=== PATIENT | female | born 1970 | race Caucasian/White ===

== ENCOUNTER 2019-12-26 11:36 | Outpatient (CLI) | payer OTHER, SELFPAY ==
[2019-12-26 12:05] LABS: Basophils Absolute Auto 0.04 K/mm3 (0.00-0.10); Basophils Percent Auto 0.8 % (0.0-1.0); Eosinophils Absolute Auto 0.15 K/mm3 (0.02-0.50); Eosinophils Percent Auto 2.9 % (1.0-6.0); Hematocrit 41.3 % (35.0-49.0); Hemoglobin 13.7 g/dL (12.0-15.0); Immature Granulocyte Absolute 0.01 K/mm3 (0.00-0.00); Immature Granulocyte Percent A 0.2 % (0.0-0.0); Lymphocytes Absolute Auto 2.11 K/mm3 (1.10-4.50); Lymphocytes Percent Auto 40.2 % (18.0-42.0); Mean Corpuscular HGB Conc 33.2 g/dL (32.0-36.0); Mean Corpuscular Hemoglobin 30.4 pg (27.0-31.0); Mean Corpuscular Volume 91.6 fL (78.0-102.0); Mean Platelet Volume 10.3 fl (9.2-11.8); Monocytes Absolute Auto 0.35 K/mm3 (0.10-0.90); Monocytes Percent Auto 6.7 % (2.0-11.0); Neutrophils Absolute Auto 2.6 K/mm3 (1.7-7.2); Neutrophils Percent Auto 49.2 % (50.0-70.0); Platelet Count Result 256 K/mm3 (150-420); Red Blood Count 4.51 M/mm3 (4.20-5.40); Red Cell Distribution Width 14.3 % (11.6-14.4); White Blood Count 5.3 K/mm3 (4.8-10.8)
[2019-12-26 13:29] LABS: Alanine Aminotransferase 24 U/L (14-59); Albumin Level 3.6 g/dL (3.4-5.0); Alkaline Phosphatase 76 U/L (46-116); Anion Gap 10.5 mmol/L (7-16); Aspartate Amino Transferase 19 U/L (15-37); Bilirubin,Total 0.3 mg/dL (0.00-1.00); Blood Urea Nitrogen 20 mg/dL (7-18); Calcium 8.9 mg/dL (8.5-10.1); Carbon Dioxide 30 mmol/L (21-32); Chloride 105 mmol/L (98-108); Cholesterol 127 mg/dL (0-200); Estimated Glomerular Filt Rate > 60; Ferritin 106 ng/mL (8-252); Glucose 92 mg/dL (70-99); HDL Direct 49 mg/dL (40-60); Iron 83 ug/dL (50-170); LDL Cholesterol Calculated 67 mg/dL (<130); Magnesium 2.1 mg/dL (1.8-2.4); Osmolality Calculated 294 mOsm/kg (285-295); Percent Iron Saturation 30 % (12-57); Phosphorus 4.2 mg/dL (2.6-4.7); Potassium 4.5 mmol/L (3.5-5.1); Sodium 141 mmol/L (136-145); Total Protein 6.5 g/dL (6.4-8.2); Triglycerides 53 mg/dL (0-150); Vitamin B12 699 pg/mL (193-986)
[2019-12-26 13:39] LABS: Folic Acid > 20.0 ng/mL (8.6->20)
[2019-12-28 14:19] LABS: Parathyroid Intact 26 pg/mL (14-64)
[2019-12-28 19:58] LABS: Vitamin D 25 Hydroxy 54 ng/mL (30-100)
[2019-12-30 14:26] LABS: Vitamin B1 23 nmol/L (8-30)
== END 2019-12-26 11:37 | disposition home or self-care (01) ==
LOC: CHSLAB 11:42
PROVIDERS: PCP Physician Assistant
DX: E66.01 Morbid (severe) obesity due to excess calories (principal); K90.9 Intestinal malabsorption, unspecified; Z98.84 Bariatric surgery status
CPT/HCPCS: 36415; 80053; 80061; 82306; 82607; 82728; 82746; 83540; 83550; 83735; 83970; 84100; 84425; 85025

== ENCOUNTER 2020-04-16 10:41 | Outpatient (CLI) | payer OTHER, SELFPAY ==
[2020-04-16 11:04] LABS: Hemoglobin A1C 5.1 % (<5.7)
[2020-04-16 11:36] LABS: Basophils Absolute Auto 0.03 K/mm3 (0.00-0.10); Basophils Percent Auto 0.5 % (0.0-1.0); Eosinophils Absolute Auto 0.16 K/mm3 (0.02-0.50); Eosinophils Percent Auto 2.8 % (1.0-6.0); Hematocrit 40.8 % (35.0-49.0); Hemoglobin 13.2 g/dL (12.0-15.0); Immature Granulocyte Absolute 0.03 K/mm3 (0.00-0.00); Immature Granulocyte Percent A 0.5 % (0.0-0.0); Lymphocytes Absolute Auto 2.39 K/mm3 (1.10-4.50); Lymphocytes Percent Auto 41.2 % (18.0-42.0); Mean Corpuscular HGB Conc 32.4 g/dL (32.0-36.0); Mean Corpuscular Hemoglobin 29.5 pg (27.0-31.0); Mean Corpuscular Volume 91.1 fL (78.0-102.0); Mean Platelet Volume 10.4 fl (9.2-11.8); Monocytes Absolute Auto 0.49 K/mm3 (0.10-0.90); Monocytes Percent Auto 8.4 % (2.0-11.0); Neutrophils Absolute Auto 2.7 K/mm3 (1.7-7.2); Neutrophils Percent Auto 46.6 % (50.0-70.0); Platelet Count Result 235 K/mm3 (150-420); Red Blood Count 4.48 M/mm3 (4.20-5.40); Red Cell Distribution Width 14.2 % (11.6-14.4); White Blood Count 5.8 K/mm3 (4.8-10.8)
[2020-04-16 12:27] LABS: Alanine Aminotransferase 24 U/L (14-59); Albumin Level 3.6 g/dL (3.4-5.0); Alkaline Phosphatase 80 U/L (46-116); Anion Gap 8 mmol/L (8-16); Aspartate Amino Transferase 11 U/L (15-37); Bilirubin,Total 0.5 mg/dL (0.00-1.00); Blood Urea Nitrogen 22 mg/dL (7-18); Calcium 9.4 mg/dL (8.5-10.1); Carbon Dioxide 29 mmol/L (21-32); Chloride 106 mmol/L (98-108); Cholesterol 136 mg/dL (0-200); Estimated Glomerular Filt Rate > 60; Ferritin 89 ng/mL (8-252); Glucose 87 mg/dL (70-99); HDL Direct 51 mg/dL (40-60); Iron 97 ug/dL (50-170); LDL Cholesterol Calculated 73 mg/dL (<130); Magnesium 2.1 mg/dL (1.8-2.4); Osmolality Calculated 298 mOsm/kg (285-295); Percent Iron Saturation 34 % (12-57); Phosphorus 4.6 mg/dL (2.6-4.7); Potassium 4.4 mmol/L (3.5-5.1); Sodium 143 mmol/L (136-145); Total Protein 6.5 g/dL (6.4-8.2); Triglycerides 59 mg/dL (0-150); Vitamin B12 913 pg/mL (193-986)
[2020-04-16 12:29] LABS: Folic Acid > 20.0 ng/mL (8.6->20)
[2020-04-19 14:40] LABS: Parathyroid Intact 16 pg/mL (14-64)
[2020-04-19 21:57] LABS: Vitamin D 25 Hydroxy 52 ng/mL (30-100)
[2020-04-21 04:20] LABS: Vitamin B1 17 nmol/L (8-30)
== END 2020-04-16 10:42 | disposition home or self-care (01) ==
PROVIDERS: PCP Physician Assistant
DX: E66.01 Morbid (severe) obesity due to excess calories (principal); K90.9 Intestinal malabsorption, unspecified; Z98.84 Bariatric surgery status
CPT/HCPCS: 36415; 80053; 80061; 82306; 82607; 82728; 82746; 83036; 83540; 83550; 83735; 83970; 84100; 84425; 85025

== ENCOUNTER 2021-04-24 10:03 | Outpatient (CLI) | payer OTHER, SELFPAY ==
[2021-04-24 10:18] LABS: Basophils Absolute Auto 0.04 K/mm3 (0.00-0.10); Basophils Percent Auto 0.6 % (0.0-1.0); Eosinophils Absolute Auto 0.14 K/mm3 (0.02-0.50); Eosinophils Percent Auto 2.2 % (1.0-6.0); Hematocrit 42.2 % (35.0-49.0); Hemoglobin 14.1 g/dL (12.0-15.0); Immature Granulocyte Absolute 0.01 K/mm3 (0.00-0.00); Immature Granulocyte Percent A 0.2 % (0.0-0.0); Lymphocytes Absolute Auto 2.48 K/mm3 (1.10-4.50); Lymphocytes Percent Auto 39.3 % (18.0-42.0); Mean Corpuscular HGB Conc 33.4 g/dL (32.0-36.0); Mean Corpuscular Hemoglobin 30.1 pg (27.0-31.0); Mean Platelet Volume 8.9 fl (9.2-11.8); Monocytes Absolute Auto 0.49 K/mm3 (0.10-0.90); Monocytes Percent Auto 7.8 % (2.0-11.0); Neutrophils Absolute Auto 3.2 K/mm3 (1.7-7.2); Neutrophils Percent Auto 49.9 % (50.0-70.0); Platelet Count Result 341 K/mm3 (150-420); Red Blood Count 4.69 M/mm3 (4.20-5.40); Red Cell Distribution Width 13.5 % (11.6-14.4); White Blood Count 6.3 K/mm3 (4.8-10.8)
[2021-04-24 11:38] LABS: Alanine Aminotransferase 40 U/L (14-59); Albumin Level 3.8 g/dL (3.4-5.0); Alkaline Phosphatase 74 U/L (46-116); Anion Gap 9 mmol/L (8-16); Aspartate Amino Transferase 19 U/L (15-37); Bilirubin,Total 0.5 mg/dL (0.00-1.00); Blood Urea Nitrogen 18 mg/dL (7-18); Calcium 9.2 mg/dL (8.5-10.1); Carbon Dioxide 30 mmol/L (21-32); Chloride 104 mmol/L (98-108); Cholesterol 136 mg/dL (0-200); Estimated Glomerular Filt Rate > 60; Ferritin 107 ng/mL (8-252); Glucose 91 mg/dL (70-99); HDL Direct 53 mg/dL (40-60); Iron 111 ug/dL (50-170); LDL Cholesterol Calculated 71 mg/dL (<130); Magnesium 1.9 mg/dL (1.8-2.4); Osmolality Calculated 297 mOsm/kg (285-295); Percent Iron Saturation 36 % (12-57); Phosphorus 4.2 mg/dL (2.6-4.7); Potassium 4.4 mmol/L (3.5-5.1); Sodium 143 mmol/L (136-145); Total Protein 6.7 g/dL (6.4-8.2); Triglycerides 58 mg/dL (0-150); Vitamin B12 1295 pg/mL (193-986)
[2021-04-24 11:42] LABS: Folic Acid > 20.0 ng/mL (8.6->20)
[2021-04-27 12:16] LABS: Parathyroid Intact 22 pg/mL (14-64)
[2021-04-27 22:46] LABS: Vitamin D 25 Hydroxy 51 ng/mL (30-100)
== END 2021-04-24 10:04 | disposition home or self-care (01) ==
LOC: CHSLAB 10:05
PROVIDERS: PCP Physician Assistant; Visit Provider Surgery
DX: E66.01 Morbid (severe) obesity due to excess calories (principal); K90.9 Intestinal malabsorption, unspecified; Z98.84 Bariatric surgery status
CPT/HCPCS: 36415; 80053; 80061; 82306; 82607; 82728; 82746; 83540; 83550; 83735; 83970; 84100; 84425; 85025

== ENCOUNTER 2021-04-30 12:48 | Outpatient (CLI) | payer OTHER, SELFPAY ==
--- NOTE | ~2021-04-30 | MM_ITS ---
EXAMINATION: MM screening kendall BI w darwin HISTORY: Screening mammogram TECHNIQUE: Craniocaudal and mediolateral oblique 3-D tomosynthesis images were obtained and synthetic 2-D images were generated. CAD analysis was submitted and interpreted. COMPARISON: 11/29/2018 bilateral digital screening mammogram BREAST PARENCHYMAL COMPOSITION: The breasts are almost entirely fatty. FINDINGS: There is no evidence of suspicious mass, calcification, or architectural distortion to sugg est malignancy in either breast. There has been no suspicious interval change. IMPRESSION: 1. No mammographic evidence of malignancy. 2. Recommend routine screening mammography in one year. BI-RADS Category 1: Negative Reviewed, dictated and finalized at location A.
== END 2021-04-30 12:49 | disposition home or self-care (01) ==
PROVIDERS: PCP Physician Assistant; Visit Provider Nurse Practitioner Family
DX: Z12.31 Encounter for screening mammogram for malignant neoplasm of breast (principal)
CPT/HCPCS: 77063; 77067

== ENCOUNTER 2022-11-15 17:45 | Emergency (ER) | payer OTHER, SELFPAY ==
[2022-11-15 17:50] VITALS: BP 148/99; PULSE 87; RESP 20; TEMP 36.9; O2SAT 100
--- NOTE | 2022-11-15 18:02 | ED.FEMALEGU ---
HPI - Female Genitourinary General Chief complaint: Urogenital-Female Stated complaint: poss uti History of Present Illness HPI Narrative: PATIENT PRESENTS WITH BURNING WITH URINATION AND LOW BACK PAIN NO PELVIC PAIN NO VAGINAL DISCHARGE NO FLANK PAIN AND NO GROSS HEMATURIA Related Data Allergies Allergy/AdvReac Type Severity Reaction Status Date / Time NSAIDS (Non-Steroidal AdvReac Other Verified 05/27/19 11:20 Anti-Inflamma Review of Systems Review of Systems: CONSTITUTIONAL: DENIES FEVER, CHILLS, OR SWEATS. EYES: DENIES VISUAL CHANGES, REDNESS, OR DISCHARGE. ENT: DENIES RHINORRHEA, CONGESTION, SORE THROAT, OR OTALGIA. CARDIOVASCULAR: DENIES CHEST PAIN, PALPITATIONS, OR EDEMA. RESPIRATORY: DENIES COUGH OR DYSPNEA. GASTROINTESTINAL: DENIES ABDOMINAL PAIN, NAUSEA, VOMITING, OR DIARRHEA. GENITOURINARY: DENIES DYSURIA OR HEMATURIA. SKIN: DENIES RASH OR ITCHING. MUSCULOSKELETAL: DENIES BACK PAIN, JOINT PAIN, OR MYALGIA. NEUROLOGIC: DENIES HEADACHE, NUMBNESS, OR WEAKNESS. PSYCHIATRIC: DENIES ANXIETY OR DEPRESSION. [facility]LY [facility] Past Medical History Medical History (Updated 11/15/22 @ 18:03 by SELWYN Milligan) Anxiety Depression Hypertension Obesity Obstructive sleep apnea Surgical History Surgical History (System 05/27/19 @ 11:20 by Shelley Roe) H/O bariatric surgery H/O tubal ligation S/P cholecystectomy Family History Family History (System 05/27/19 @ 11:20 by Shelley Roe) Mother Chronic obstructive pulmonary disease Hypertension Father Diabetes mellitus Hypertension Sibling Hypertension Sibling Hypertension Social History Social History (System 05/27/19 @ 11:20 by Shelley Roe) Smoking status: Never smoker Alcohol intake: former Substance use: never Living arrangements: with family Additional living arrangements comments: With her and he is the durable power real estate attorney. Three biological children. two step children. Occupation/Education: unemployed Gender identity (if verbalized by the patient): Female Spiritual care concerns: No Agree to blood products: Yes Comments AT TIME OF SIGNATURE, AGREE WITH NURSING PAST MEDICAL, SURGICAL, SOCIAL AND FAMILY HISTORY. THERE IS NO RELEVANT FAMILY HISTORY PERTINENT TO THE PRESENTING COMPLAINT Exam Narrative: GENERAL: WELL-APPEARING, WELL-NOURISHED, AND IN NO ACUTE DISTRESS. HEAD: NORMOCEPHALIC, ATRAUMATIC. EYES: PERRLA AND EOMI. ENT: NARES CLEAR, NO RHINORRHEA OR EPISTAXIS. MUCOUS MEMBRANES MOIST. NECK: SUPPLE. CHEST: CLEAR TO AUSCULTATION. NO RESPIRATORY DISTRESS. HEART: REGULAR RATE AND RHYTHM. NO MURMUR HEARD. NORMAL PERIPHERAL PULSES. ABDOMEN: SOFT, NONTENDER, NONDISTENDED, NORMAL ACTIVE BOWEL SOUNDS. EXTREMITIES: NORMAL RANGE OF MOTION. NO EDEMA. SKIN: WARM, DRY, NO RASH. NEURO: NO FOCAL DEFICITS. ALERT AND ORIENTED X3. GIULIANA COMA SCALE EYE OPENING: SPONTANEOUS 4 GIULIANA COMA SCALE MOTOR: OBEYS COMMANDS 6 GIULIANA COMA SCALE VERBAL: ORIENTED 5 GIULIANA COMA SCALE TOTAL 15 Course Course Level of Care: Express Care Visit Vital Signs Vital signs: Vital Signs Temperature 36.9 C 11/15/22 17:50 Pulse Rate 87 11/15/22 17:50 Respiratory Rate 20 11/15/22 17:50 Blood Pressure 148/99 H 11/15/22 17:50 Pulse Oximetry 100 11/15/22 17:50 Oxygen Delivery Room Air 11/15/22 17:50 Temperature 36.9 C 11/15/22 17:50 Pulse Rate 87 11/15/22 17:50 Respiratory Rate 20 11/15/22 17:50 Blood Pressure 148/99 H 11/15/22 17:50 Pulse Oximetry 100 11/15/22 17:50 Oxygen Delivery Room Air 11/15/22 17:50 PLEASE LIDA SCHEDULE A FOLLOWUP VISIT WITH YOUR PERSONAL PHYSICIAN FOR FURTHER EVALUATION AND TREATMENT. INCLUDING RECHECK AND DISCUSSION OF YOUR BLOOD PRESSURE. IF YOUR SYMPTOMS PERSIST, CHANGE OR WORSEN SIGNIFICANTLY BEFORE YOU CAN CONTACT YOUR PERSONAL PHYSICIAN THEN PLEASE, WITHOUT DELAY, GO TO THE EMERGENCY DEPARTMENT FOR FURTHER EVALUATION LANDRY Pack
== END 2022-11-15 18:10 | disposition home or self-care (01) ==
PROVIDERS: Emergency Provider Nurse Practitioner Family
DX: N39.0 Urinary tract infection, site not specified (principal); I10 Essential (primary) hypertension
CPT/HCPCS: 81003; 87077; 87086; 87186; 99213; G0463

== ENCOUNTER 2024-08-13 11:41 | Outpatient (CLI) | payer OTHER, SELFPAY ==
--- OUTSIDE RECORDS SUMMARY | 2024-08-13 11:48 | XMS_ITS | Clinical Summary ---
Author Organization [facility] Address [address] [place] [address]. [place] [address] [place] [address] Care Team Providers Care Embossing Machine Operator Helper Name Role Phone Mandeep Hickey MD Primary Care Provider [phone] Encounters Date Type Department Care Team Description 06/20/2024 1:54 PM CHUCKING AND BORING MACHINE OPERATOR - 06/20/2024 11:59 PM CHUCKING AND BORING MACHINE OPERATOR Hospital Encounter [facility] [address] [place] [address] Jadiel Bonilla APNP Discharge Disposition: Home or Self Care (Routine Discharge) 06/20/2024 Travel from Last 3 Months Social History Tobacco Use Types Packs/Day Years Used Date Smoking Tobacco: Never Assessed Comments Unknown Sex and Gender Information Value Date Recorded Sex Assigned at Not on file Legal Sex Female 7:08 PM CDT Gender Identity Not on file Sexual Orientation Not on file Plan of Treatment Health Maintenance Due Date Last Done Comments Cervical Cancer Screening Pap Smear (Age 30 to 64) Every 3 Years 1969 Colorectal Cancer Screening Colonoscopy (10 Years) 1969 Annual Physical 1972 Hepatitis C 09/21/1987 Hepatitis B Vaccines (1 of 3 - 19+ 3-dose series) 1988 Cervical Cancer Screening Pap with HPV Testing (Age 30 to 64) Every 5 Years 09/21/1999 Cervical Cancer Screening with HPV 09/21/1999 Zoster Vaccines (1 of 2) 09/21/2019 DTaP, Tdap and Td Vaccines (7 - Td or Tdap) 02/16/2022 02/17/2012, 12/17/1974, 09/14/1971, Additional history exists COVID-19 Vaccine ( season) 2024 10/18/2020 Influenza Adult (#1) 2024 04/30/2022, 05/30/2019, 05/19/2018, Additional history exists Mammogram Screening 06/20/2026 06/20/2024 Meningococcal B Vaccine Aged Out No l onger eligible based on patient's age to complete this topic Meningococcal Vaccine Aged Out No yareli wendy eligible based on patient's age to complete this topic Pneumococcal Vaccine: Pediatrics (0 to 5 Years) and At-Risk Patients (6 to 64 Years) Aged Out No longer eligible based on patient's age to complete this topic RSV Immunizations Under 20 Months Aged Out No longer eligible based on patient's age to complete this topic Procedures Procedure Name Priority Date/Time Associated Diagnosis Comments MG SCREENING W HOANG JASPER DIGI Routine 06/20/2024 3:02 PM CHUCKING AND BORING MACHINE OPERATOR Encounter for screening for depression from Last 3 Months Results * MG SCREENING W HOANG JASPER DIGI (06/20/2024 3:02 PM CHUCKING AND BORING MACHINE OPERATOR) Anatomical Region Laterality Modality Breast Bilateral Mammography 06/23/2024 11:4 9 AM CHUCKING AND BORING MACHINE OPERATOR Impressions 06/23/2024 11:49 AM CHUCKING AND BORING MACHINE OPERATOR IMPRESSION: No suspicious change since 04/30/2021. Recommendation: 1: Routine Screening ??Bilateral ??in 1 Year Assessment: ACR BI-RADS 2 - BENIGN FINDING(S) Ordered By: JADIEL BONILLA Interpreted By: Rogers Coburn MD, 06/23/2024 11:49 AM Narrative 06/23/2024 11:49 AM CHUCKING AND BORING MACHINE OPERATOR [address] [place] [address] Examination: Digital screening mammogram with CAD. Clinical history: Asymptomatic patient presents for routine screening. Comparison: 04/30/2021. Technique: Bilateral digital mammograms. The exam was interpreted with the use of a computer-aided detection (CAD) system. ??Additional 3-D tomosynthesis images were acquired. Tissue density: There are scattered areas of fibroglandular density. Findings: The breast tissue contains scattered fibroglandular densities. ?? Benign-appearing calcification noted. No suspicious mass, microcalcification or area of architectural distortion can be identified. From a mammographic standpoint, routine followup in one year would seem adequate. Jadiel ALBERTO MAMMO Final Resul t from Last 3 Months Insurance [employer] Care Teams Embossing Machine Operator Helper Relationship Specialty Start Date End Date Mandeep Hickey MD [address] [address] [place] [phone] PCP - General FAMILY PRACTICE 06/20/24
--- OUTSIDE RECORDS SUMMARY | 2024-08-13 11:49 | XMS_ITS | Referral Summary ---
Author Organization [facility] Address [address] [place] [address] Care Team Providers Care Dumper Bailer Operator Name Role Phone Chichi Rose PA-C Primary Care Provider Source Comments [facility],non-owned Affiliates and Associated Physician Practices is amultiple site organization consisting of ambulatory clinics and hospital sitesin [place], [place], [place] and [place]. This disclosure is being madepursuant to the Care Everywhere program and may not contain all information available regarding this patient. Last updated 18.[facility] Allergies No known active allergies Medications * Be aware that medications may not be up to date on this document. Alwaysverify current medications with the patient. Medication Sig Dispensed Refills Start Date End Date Status Multiple Vitamin (MULTIVITAMIN PO) Take 2 tablets by mouth once daily Active Calcium Carbonate-Vitamin D (CALCIUM-D PO) Take by mouth once daily Active Magnesium 500 MG Take 1,000 mg by mouth once daily Active Active Problems Problem Noted Date Diagnosed Date Obstruction of common bile duct 05/18/2019 Morbid obesity 04/26/2019 Resolved Problems Problem Noted Date Diagnosed Date Resolved Date Pre-op evaluation 10/26/2019 Immunizations Name Administration Dates Next Due COVID SAMANTHA PRIMARY 18+YR 10/18/2020 Social History Tobacco Use Types Packs/Day Years Used Date Smoking Tobacco: Never Smokeless Tobacco: Never Alcohol Use Standard Drinks/Week Comments Not Currently 0 (1 standard drink = 0.6 oz pur e alcohol) rare Sex and Gender Information Value Date Recorded Sex Assigned at Not on file Gender Identity Not on file Sexual Orientation Not on file Last Filed Vital Signs Vital Sign Reading Time Taken Comments Blood Pressure 126/87 03/11/2023 11:40 AM CDT Pulse 60 03/11/2023 11:40 AM CDT Temperature 36.4 ??C (97.5 ??F) 03/11/2023 11:30 AM C DT Respiratory Rate 22 03/11/2023 11:20 AM CDT Oxygen Saturation 100% 03/11/2023 11:40 AM CDT Inhaled Oxygen Concentration - - Weight 132.9 kg (293 lb) 03/18/2023 8:00 AM CDT Height 157.5 cm (5' 2 ) 03/18/2023 8:00 AM CDT Body Mass Index 53.59 03/18/2023 8:00 AM CDT Functional Status Functional Status Response Date of Assess ment Is person deaf or have serious hearing difficult y? No 03/11/2023 Is person blind or have serious difficulty seein g? No 03/11/2023 Does person have serious dif ficulty walking/climbing stairs? No 03/11/2023 Does person have difficulty dressing/bathing? No 03/11/2023 Does person have difficulty doing errands alone? No 03/11/2023 Cognitive Status Response Date of Assessm ent Does person have difficulty concentrating/remembering/making decisions? No 03/11/2023 Plan of Treatment Not on file Medical Devices Implanted Type Area Hand Roller Device Identifier Shelf Expiration Date Model / Serial / Lot Evicel Fibrin Sealant Implanted:Qty: 1 on 04/26/2019 by Erwin Echeverria MD at [facility] N/A: Abdomen 09/09/2020 [id number] / / [id number] Procedures Procedure Name Priority Date/Time Associated Diagnosis Comments COMPREHENSIVE METABOLIC PANEL Routine 06/12/2022 3:21 PM FLAMER AFTER LASTING S/P laparoscopic sleeve gastrectomy Intestinal malabsorption following gastrectomy (HCC) LIPID PROFILE Routine 06/12/2022 3:21 PM FLAMER AFTER LASTING S/P laparoscopic sleeve gastrectomy Intestinal malabsorption following gastrectomy (HCC) from Last 3 Months or Most Recently Relevant to Health Maintenance Results * COMPREHENSIVE METABOLIC PANEL (06/12/2022 3:21 PM FLAMER AFTER LASTING) Glucose 107 70 - 125 mg/dL 06/12/2022 3:49 PM FLAMER AFTER LASTING [facility] Sodium 142 136 - 145 mmol/L 06/12/2022 3:49 PM [facility] Potassium 4.4 3.4 - 5.1 mmol/L 06/12/2022 3:49 PM [facility] Chloride 104 98 - 107 mmol/L 06/12/2022 3:49 PM [facility] CO2 28 22 - 29 mmol/L 06/12/2022 3:49 PM [facility] Calcium 9.6 8.4 - 10.2 mg/dL 06/12/2022 3:49 PM [facility] Anion Gap 14 10 - 20 mmol/L 06/12/2022 3:49 PM [facility] BUN 17.3 9.8 - 20.1 mg/dL 06/12/2022 3:49 PM [facility] Creatinine 0.88 0.57 - 1.11 mg/dL 06/12/2022 3:49 PM [facility] eGFR by MDRD >60 >60 mL/min/1.7 3m2 06/12/2022 3:49 PM [facility] eGFR by MDRD >60 >60 mL/min/1.7 3m2 06/12/2022 3:49 PM [facility] Alkaline Phosphatase 87 40 - 150 U/L 06/12/2022 3:49 PM [facility] ALT 18 5 - 55 U/L 06/12/2022 3:49 PM [facility] AST 19 5 - 34 U/L 06/12/2022 3:49 PM [facility] Protein Total 7.3 6.4 - 8.3 gm/dL 06/12/2022 3:49 PM [facility] Albumin 4.0 3.5 - 5.0 gm/dL 06/12/2022 3:49 PM [facility] Globulin Total 3.3 2.6 - 4.0 gm/dL 06/12/2022 3:49 PM [facility] Albumin/Globulin Ratio 1.2 0.9 - 1.6 06/12/2022 3:49 PM [facility] Bilirubin Total 0.6 0.2 - 1.2 mg/dL 06/12/2022 3:49 PM [facility] Blood BLOOD SPECIMEN / Unknown Lab Venipuncture / Unknown 06/12/2022 3:21 PM FLAMER AFTER LASTING 06/12/2022 3:27 PM FLAMER AFTER LASTING Ramila Coe Rajeev VICE ADMIRAL-LINING STITCHER LAB - CHEMISTRY ORDERABLES Performing Organization Address City/State/[facility] Co de Phone Number [facility] [address] * LIPID PROFILE (06/12/2022 3:21 PM FLAMER AFTER LASTING) Cholesterol 159 <200 mg/dL 06/12/2022 3:50 PM FLAMER AFTER LASTING [facility] Triglycerides 74 <150 mg/dL 06/12/2022 3:50 PM FLAMER AFTER LASTING [facility] HDL Cholesterol 56 >40 mg/dL 2 3:50 PM FLAMER AFTER LASTING [facility] Chol HDL Ratio 2.8 1.0 - 6.0 06/12/2022 3:50 PM [facility] LDL Calculated 88 65 - 130 mg/dL 06/12/2022 3:50 PM [facility] VLDL Calculated 15 <=30 mg/dL 2 3:50 PM [facility] Blood BLOOD SPECIMEN / Unknown Lab Venipuncture / Unknown 06/12/2022 3:21 PM FLAMER AFTER LASTING 06/12/2022 3:27 PM FLAMER AFTER LASTING Narrative [facility] - 06/12/2022 3:50 PM FLAMER AFTER LASTING Lipid Profile Comment: CHOLESTEROL LEVEL..................CLINICAL INTERPRETATION LESS THAN 200 MG/DL..............................DESIRABLE 200-239 MG/DL..............................BORDERLINE HIGH GREATER THAN 240 MG/DL................................HIGH LDL-CHOLESTEROL LEVEL..............CLINICAL INTERPRETATION LESS THAN 100 MG/DL................................OPTIMAL 100-129 MG/DL.................................NEAR OPTIMAL GREATER THAN 160 MG/DL...........................HIGH RISK HDL RISK LEVEL GREATER THEN 60 MG/DL............................DECREASED 40-60 MG/DL........................................AVERAGE LESS THAN 40 MG/DL...............................INCREASED TRIGLYCERIDE LEVEL..................CLINICAL INTERPRETATION LESS THAN 150 MG/DL...............................DESIRABLE 150-199 MG/DL...............................BORDERLINE HIGH 200-499 MG/DL..........................................HIGH GREATER THAN 500..................................VERY HIGH THE NATIONAL CHOLESTEROL EDUCATION PROGRAM HAS SET THE ABOVE GUIDELINES (REFERANCE VALUES) FOR CHOLESTEROL AND HDL. RISK ASSOCIATED WITH CHOLESTEROL/HDL RATIOS RISK....................MALE RATIO.............FEMALE RATIO 1/2 AVERAGE.................<3.4.......................<3.3 LOW RISK.................... 4.0 ...................... 3.8 AVERAGE..................... 5.0 ...................... 4.5 2X AVERAGE.................. 9.5 ...................... 7.0 3X AVERAGE...................>23........................>11 Ramila Boo VICE ADMIRAL-LINING STITCHER LAB - CHEMISTRY ORDERABLES Performing Organization Address City/State/[facility] Co de Phone Number [facility] [address] from Last 3 Months or Most Recently Relevant to Health Maintenance Care Teams Dumper Bailer Operator Relationship Specialty Start Date End Date Chichi Rose PA-C [address] [phone] PCP - General Physician Sap Bw Architect 10/15/18
--- OUTSIDE RECORDS SUMMARY | 2024-08-13 11:49 | XMS_ITS | Clinical Summary ---
Author Organization [email or web address] Address [address] [place] [address] Care Team Providers Care Comic Artist Name Role Phone Chichi Rose PA-C Primary Care Provider Source Comments [email or web address],non-owned Affiliates and Associated Physician Practices is amultiple site organization consisting of ambulatory clinics and hospital sitesin [place], [place], [place] and [place]. This disclosure is being madepursuant to the Care Everywhere program and may not contain all information available regarding this patient. Last updated 18.[email or web address] Allergies No known active allergies Medications * Be aware that medications may not be up to date on this document. Always verify current medications with the patient. Medication Sig [...] Next Due COVID SAMANTHA PRIMARY 18+YR 10/18/2020 Family History Medical History Relation Name Comments Hypertension Brother Hypertension Father Other Father electrolyte imb alance COPD - Chronic Obstructive Pulmonary Disease Mother Hypertension Mother Cardiomyopathy Sister Depression Sister Relation Name Status Comments Brother Alive Father Alive Maternal Grandfather Maternal Grandmother Mother Alive Paternal Grandfather Paternal Grandmother Sister Alive Social History Tobacco Use Types Packs/Day Years [...] Mass Index 53.59 03/18/2023 8:00 AM CDT Plan of Treatment Health Maintenance Due Date Last Done Comments COLOGUARD (AGES 45-75) - COLON CA SCREENING 1969 CT COLONOGRAPHY - COLON CA SCREENING 1969 FIT - COLON CA SCREENING 1969 FLEX SIG - COLON CA SCREENING 1969 MAMMOGRAM 1969 PAP SMEAR 1969 HIV SCREENING 1984 HEPATITIS C SCREENING 09/16/1987 DTAP/TDAP/TD VACCINES (1 - Tdap) 1988 HEPATITIS B VACCINE (1 of 3 - 19+ 3-dose series) 1988 PNEUMOCOCCAL VACCINE 50+ (1 of 1 - PCV) 09/21/2019 ZOSTER VACCINE (1 of 2) 09/21/2019 COVID-19 VACCINE (2 - season) 2024 10/18/2020 INFLUENZA VACCINE (#1) 2024 DEPRESSION SCREENING 07/13/2024 SCREENING FOR DIABETES 06/12/2025 , 05/27/2019, 04/27/2019, Additional history exists COLONOSCOPY - COLON CA SCREENING 03/11/2026 03/11/2023, 06/12/2021 Colorectal Cancer Screening 03/11/2026 LIPID TESTING 06/12/2027 06/12/2022 COLON MONITORING 03/11/2033 03/11/2023, 06/12/2021 HIB VACCINE Aged Out No longer eligi ble based on patient's age to complete this topic HPV VACCINE Aged Out No longer eligi ble based on patient's age to complete this topic MENINGOCOCCAL (Group B) VACCINE Aged Out No longer eligible based on patient's age to complete this topic MENINGOCOCCAL VACCINE Aged Out No yareli wendy eligible based on patient's age to complete this topic Medical Devices Implanted Type Area Computer Systems Software Engineer Device Identifier Shelf Expiration Date Model / Serial / Lot Evicel Fibrin Sealant Implanted:Qty: 1 on 04/26/2019 by Erwin Echeverria MD at [facility] N/A: Abdomen 09/09/2020 [id number] / / [id number] Procedures Procedure Name Priority Date/Time Associated Diagnosis Comments COMPREHENSIVE METABOLIC PANEL Routine 06/12/2022 3:21 PM HEALTHCARE LIAISON S/P laparoscopic sleeve gastrectomy Intestinal malabsorption following gastrectomy (HCC) LIPID PROFILE Routine 06/12/2022 3:21 PM HEALTHCARE LIAISON S/P laparoscopic sleeve gastrectomy Intestinal malabsorption following gastrectomy (HCC) from Last 3 Months or Most Recently Relevant to Health Maintenance Results * COMPREHENSIVE METABOLIC PANEL (06/12/2022 3:21 PM HEALTHCARE LIAISON) Glucose 107 70 - 125 mg/dL 06/12/2022 3:49 PM [facility] Sodium 142 136 - 145 mmol/L [...] Lab Venipuncture / Unknown 06/12/2022 3:21 PM HEALTHCARE LIAISON 06/12/2022 3:27 PM [facility] Ramila Boo HOME INSPECTOR-CREDIT ADMINISTRATION OFFICER LAB - CHEMISTRY ORDERABLES Performing Organization Address [facility] de Phone Number [facility] [address] * LIPID PROFILE (06/12/2022 3:21 PM HEALTHCARE LIAISON) [facility] Cholesterol 159 <200 mg/dL 06/12/2022 3:50 PM [facility] Triglycerides 74 <150 mg/dL 06/12/2022 3:50 PM [facility] HDL Cholesterol 56 >40 mg/dL 3:50 PM [facility] Chol HDL Ratio 2.8 1.0 - 6.0 06/12/2022 3:50 PM [facility] LDL Calculated 88 65 - 130 mg/dL 06/12/2022 3:50 PM HEALTHCARE LIAISON [facility] VLDL Calculated 15 <=30 mg/dL 3:50 PM [facility] Blood BLOOD SPECIMEN / Unknown Lab Venipuncture / Unknown 06/12/2022 3:21 PM HEALTHCARE LIAISON 06/12/2022 3:27 PM HEALTHCARE LIAISON Narrative [facility] - 06/12/2022 3:50 PM HEALTHCARE LIAISON Lipid Profile Comment: CHOLESTEROL LEVEL..................CLINICAL INTERPRETATION LESS [...] 9.5 ...................... 7.0 3X AVERAGE...................>23........................>11 Ramila Boo HOME INSPECTOR-CREDIT ADMINISTRATION OFFICER LAB - CHEMISTRY ORDERABLES [facility] [address] from Last 3 Months or Most Recently Relevant to Health Maintenance Care Teams Comic Artist Relationship Specialty Start Date End Date Chichi Rose PA-C [address] [phone] PCP - General Physician Instructor Of Education 10/15/18
--- OUTSIDE RECORDS SUMMARY | 2024-08-13 11:49 | XMS_ITS | Patient Health Summary ---
Author Organization [facility] Address [address] [place] [address] Care Team Providers Care Seamer Panty Hose Name Role Phone Chichi Rose PA-C Primary Care Provider Note from [facility],non-owned Affiliates and Associated Physician Practices is amultiple site organization consisting of ambulatory clinics and hospital sitesin [place], [place], [place] and [place]. This disclosure is being madepursuant to the Care Everywhere program and may not contain all information available regarding this patient. Last updated 18.[facility] Allergies No known active allergies Medications * Be aware that medications may not be up to date on this document. Alwaysverify current medications with the patient. * Multiple Vitamin (MULTIVITAMIN PO) Take 2 tablets by mouth once daily * Calcium Carbonate-Vitamin D (CALCIUM-D PO) Take by mouth once daily * Magnesium 500 MG Take 1,000 mg by mouth once daily Active Problems Problem Noted Date Diagnosed Date Obstruction of common bile duct 05/18/2019 Morbid obesity 04/26/2019 Resolved Problems Problem Noted Date Diagnosed Date Resolved Date Pre-op evaluation 10/26/2019 Immunizations * COVID SAMANTHA PRIMARY 18+YR(Given 10/18/2020) Social History Tobacco Use Types Packs/Day Years [...] Mass Index 53.59 03/18/2023 8:00 AM CDT Medical Devices Implanted Type Area Didactic Instructor Device Identifier Shelf Expiration Date Model / Serial / Lot Evicel Fibrin Sealant Implanted:Qty: 1 on 04/26/2019 by Erwin Echeverria MD at [facility] N/A: Abdomen 09/09/2020 [id number] / / [id number] Procedures * CARDIAC RHYTHM STRIP ORDER(Performed 03/12/2023) * GROSS + MICRO EXAM (ILL)(Performed 03/11/2023) Performed for Encounter for screening colonoscopy, History of colon polyps * COLONOSCOPY REMOVAL OR ABLATION TUMOR/POLYP/LESION (ANY METHOD)(Performed 03/11/2023) Performed for Encounter for screening colonoscopy, History of colon polyps * CBC W AUTO DIFFERENTIAL(Performed 06/12/2022) Performed for S/P laparoscopic sleeve gastrectomy, Intestinal malabsorption following gastrectomy (HCC) * COMPREHENSIVE METABOLIC PANEL(Performed 06/12/2022) Performed for S/P laparoscopic sleeve gastrectomy, Intestinal malabsorption following gastrectomy (HCC) * FERRITIN(Performed 06/12/2022) Performed for S/P laparoscopic sleeve gastrectomy, Intestinal malabsorption following gastrectomy (HCC) * IRON + TRANSFERRIN PANEL(Performed 06/12/2022) Performed for S/P laparoscopic sleeve gastrectomy, Intestinal malabsorption following gastrectomy (HCC) * LIPID PROFILE(Performed 06/12/2022) Performed for S/P laparoscopic sleeve gastrectomy, Intestinal malabsorption following gastrectomy (HCC) * MAGNESIUM BLOOD(Performed 06/12/2022) Performed for S/P laparoscopic sleeve gastrectomy, Intestinal malabsorption following gastrectomy (HCC) * PHOSPHORUS BLOOD(Performed 06/12/2022) Performed for S/P laparoscopic sleeve gastrectomy, Intestinal malabsorption following gastrectomy (HCC) * PTH INTACT+CALCIUM(Performed 06/12/2022) Performed for S/P laparoscopic sleeve gastrectomy, Intestinal malabsorption following gastrectomy (HCC) * VITAMIN B1(Performed 06/12/2022) Performed for S/P laparoscopic sleeve gastrectomy, Intestinal malabsorption following gastrectomy (HCC) * VITAMIN B12 FOLATE PANEL(Performed 06/12/2022) Performed for S/P laparoscopic sleeve gastrectomy, Intestinal malabsorption following gastrectomy (HCC) * VITAMIN D 25-HYDROXY(Performed 06/12/2022) Performed for S/P laparoscopic sleeve gastrectomy, Intestinal malabsorption following gastrectomy (HCC) * TSH(Performed 06/12/2022) Performed for S/P laparoscopic sleeve gastrectomy, Intestinal malabsorption following gastrectomy (HCC), Weight gain * GROSS + MICRO EXAM (ILL)(Performed 06/12/2021) Performed for Screening due * COLONOSCOPY REMOVAL OR ABLATION TUMOR/POLYP/LESION (ANY METHOD)(Performed 06/12/2021) Performed for Screening due * LAB MISC TEST(Performed 04/24/2021) * LAB MISC TEST(Performed 04/24/2021) * GROSS + MICRO EXAM (ILL)(Performed 05/14/2020) Performed for Gastroesophageal reflux disease, unspecified whether esophagitis present * [place] ED EGD FLEX TRANSORAL DX(Performed 05/14/2020) Performed for Gastroesophageal reflux disease, unspecified whether esophagitis present * HCG URINE QUALITATIVE(Performed 05/14/2020) Performed for Preop examination * SARS-COV-2 (COVID-19) IN HOUSE(Performed 05/11/2020) Performed for Preop examination * LAB MISC TEST(Performed 04/16/2020) * LAB MISC TEST(Performed 04/16/2020) * LAB MISC TEST(Performed 12/26/2019) * LAB MISC TEST(Performed 12/26/2019) * LAB RESULTS ORDER(Performed 12/26/2019) * LAB RESULTS ORDER(Performed 07/28/2019) * LAB MISC TEST(Performed 07/28/2019) * CBC W AUTO DIFFERENTIAL(Performed 05/27/2019) Performed for S/P laparoscopic sleeve gastrectomy, Morbid obesity (HCC) * COMPREHENSIVE METABOLIC PANEL(Performed 05/27/2019) Performed for S/P laparoscopic sleeve gastrectomy, Morbid obesity (HCC) * VITAMIN B1(Performed 05/27/2019) Performed for S/P laparoscopic sleeve gastrectomy, Morbid obesity (HCC) * VITAMIN B12 FOLATE PANEL(Performed 05/27/2019) Performed for S/P laparoscopic sleeve gastrectomy, Morbid obesity (HCC) * VITAMIN D 25-HYDROXY(Performed 05/27/2019) Performed for S/P laparoscopic sleeve gastrectomy, Morbid obesity (HCC) * MAGNESIUM BLOOD(Performed 05/27/2019) Performed for S/P laparoscopic sleeve gastrectomy, Morbid obesity (HCC) * CARDIAC RHYTHM STRIP ORDER(Performed 04/28/2019) * GLUCOSE - POINT OF CARE(Performed 04/27/2019) * GLUCOSE - POINT OF CARE(Performed 04/27/2019) * FL UGI SERIES(Performed 04/27/2019) Performed for Morbid obesity (HCC) * GLUCOSE - POINT OF CARE(Performed 04/27/2019) * PHOSPHORUS BLOOD(Performed 04/27/2019) * MAGNESIUM BLOOD(Performed 04/27/2019) * COMPREHENSIVE METABOLIC PANEL(Performed 04/27/2019) * CBC W AUTO DIFFERENTIAL(Performed 04/27/2019) * GLUCOSE - POINT OF CARE(Performed 04/27/2019) * GLUCOSE - POINT OF CARE(Performed 04/26/2019) * MAGNESIUM BLOOD(Performed 04/26/2019) * GLUCOSE - POINT OF CARE(Performed 04/26/2019) * GLUCOSE - POINT OF CARE(Performed 04/26/2019) * PHOSPHORUS BLOOD(Performed 04/26/2019) * MAGNESIUM BLOOD(Performed 04/26/2019) * COMPREHENSIVE METABOLIC PANEL(Performed 04/26/2019) * CBC W AUTO DIFFERENTIAL(Performed 04/26/2019) * GROSS + MICRO EXAM (ILL)(Performed 04/26/2019) Performed for Morbid obesity (HCC) * LAPAROSCOPIC LYSIS ADHESIONS(Performed 04/26/2019) Performed for Morbid obesity (HCC) * IL LAP SLEEVE GASTRECTOMY(Performed 04/26/2019) Performed for Morbid obesity (HCC) * BLOOD TYPE VERIFICATION(Performed 04/20/2019) * TYPE + SCREEN PANEL(Performed 04/20/2019) Performed for Pre-op testing * HCG URINE QUALITATIVE(Performed 04/20/2019) Performed for Pre-op testing * ECHOCARDIOGRAM STRESS(Performed 02/25/2019) Performed for Pre-op evaluation, Nonspecific abnormal electrocardiogram (ECG) (EKG) * STRESS TEST TREADMILL (NO IMAGING)(Performed 02/25/2019) Performed for Pre-op evaluation, Nonspecific abnormal electrocardiogram (ECG) (EKG) * ECHOCARDIOGRAM 2D WITH DOPPLER(Performed 02/25/2019) Performed for Pre-op evaluation, Nonspecific abnormal electrocardiogram (ECG) (EKG) * GROSS + MICRO EXAM (ILL)(Performed 02/15/2019) Performed for Gastroesophageal reflux disease, esophagitis presence not specified * ESOPHAGOGASTRODUODENOSCOPY (EGD) DIAGNOSTIC(Performed 02/15/2019) Performed for Gastroesophageal reflux disease, esophagitis presence not specified * HCG URINE QUALITATIVE(Performed 02/15/2019) Performed for Pre-op testing * XR CHEST 2VW(Performed 11/15/2018) * LAB MISC TEST(Performed 1969) Results * CARDIAC RHYTHM STRIP ORDER (03/12/2023 3:46 PM CDT) Only the most recent of2 resultswithin the time period is included. Narrative 03/12/2023 3:46 PM CDT Ordered by an unspecified provider. Scanned Document CARDIAC SERVICES ORD ERABLES * GROSS + MICRO EXAM (ILL) (03/11/2023 10:49 AM CDT) Only the most recent of5 resultswithin the time period is included. Case Report Surgical Pathology Report ? Case: [id number] ? Authorizing Provider: ??Elsie Valladares MD ??Collected: ? 03/11/2023 10:49 AM ? Ordering Location: ? [facility] ? Received: ?03/11/2023 02:28 PM ? Pathologist: ? Geoffrey Rajan MD ? Specimens: ?? A) - Polyp Sigmoid, Sigmoid colon polyp ? B) - Sigmoid Biopsy, Sigmoid biopsy @ 17 cm ? 03/12/2023 2:53 PM [facility] Final Diagnosis A. Sigmoid colon polyp, biopsy: Prolapse type polyp. B. Sigmoid colon polyp, biopsies: Hyperplastic polyp. 03/12/2023 2:53 PM [facility] Microscopic Description and Comment Microscopic examination is performed and substantiates the above diagnosis. 03/12/2023 2:53 PM [facility] Gross Description The requisition and specimen(s) are identified with the patient's name (Fozia Alarcon), MRN, and . Received in formalin, specimen sigmoid colon polyp , is a pink-tyler polypoid tissue (resection margin inked black), 0.9 x 0.8 x 0.5 cm. The specimen is submitted entirely in A1 after sectioning. Received in formalin, specimen ? sigmoid biopsy @ 17 cm? , are 2 tyler-pink tissues, 0.3 x 0.3 x 0.2 cm and 0.5 x 0.2 x 0.1 cm. The specimen is submitted in toto in cassette B1. AW 03/12/2023 2:53 PM [facility] Pathologist Location at [facility] 03/12/2023 2:53 PM [facility] Disclaimer The performance characteristics of all immunohistochemical and indirect immunofluorescence stains (if any) cited in this report were determined by the Histopathology Laboratory of [facility]. Some of these tests were developed by our own laboratory and have not been cleared or approved by the US Food and Drug Administration. The FDA does not require this test to go through premarket FDA review. These tests are used for clinical purposes. They should not be regarded as investigational or for research. This laboratory is certified under the Clinical Laboratory Improvement Amendments (CLIA) as qualified to perform high complexity clinical laboratory testing. H&E slides and special stains prepared at [facility], [place]. [address] (CLIA# [id number]) unless otherwise specified. This case was interpreted by the [facility] Department of Pathology. When applicable, select reference laboratory testing is performed at the [facility], [address] [place] [id number]. 03/12/2023 2:53 PM CDT [facility] Embedded Images 03/12/2023 2:53 PM CDT [facility] Pathology/Cytology POLYP OF SIGMOID COLON / Unknown 03/11/2023 10:49 AM CDT 03/11/2023 2:28 PM CDT Comment:Pre-op diagnosis: Encounter for screening colonoscopy [Z12.11] History of colon polyps [Z86.010] Miscellaneous samples (specimen) SIGMOID COLON BIOPSY SPECIMEN / Unknown 03/11/2023 10:55 AM CDT 03/11/2023 2:28 PM CDT Comment:Pre-op diagnosis: Encounter for screening colonoscopy [Z12.11] History of colon polyps [Z86.010] Elsie Valladares MD LAB - PATHOLOGY/ CYTOLOGY ORDERABLES Performing Organization Address City/State/[facility] Co de Phone Number [facility] [address] * PTH INTACT+CALCIUM (06/12/2022 3:21 PM INCINERATOR PLANT SUPERVISOR) PTH Intact 32 15 - 65 pg/mL 06/17/2022 8:55 PM INCINERATOR PLANT SUPERVISOR [employer] ([facility]) Calcium 9.8 8.6 - 10.0 mg/dL 06/17/2022 8:55 PM INCINERATOR PLANT SUPERVISOR [employer] ([facility]) Comment: Performed By: [employer] [address] [place] [address] Lock Maintenance Supervisor: Gopal Flowers MD, PhD Blood BLOOD SPECIMEN / Unknown Lab Venipuncture / Unknown 06/12/2022 3:21 PM INCINERATOR PLANT SUPERVISOR 06/12/2022 3:27 PM INCINERATOR PLANT SUPERVISOR Ramila Boo [facility] LAB - CHEMISTRY ORDERABLES Performing Organization Address [facility] de Phone Number [facility] [employer] [facility]) [address] [place] [address] * VITAMIN B1 (06/12/2022 3:21 PM INCINERATOR PLANT SUPERVISOR) Only the most recent of2 resultswithin the time period is included. Vitamin B1 Whole Blood 136 70 - 180 nmol/L 06/18/2022 8:47 AM INCINERATOR PLANT SUPERVISOR [facility] ([facility]) Comment: INTERPRETIVE INFORMATION: Vitamin B1, Whole Blood This assay measures the concentration of thiamine diphosphate (TDP), the primary active form of vitamin B1. Approximately 90 percent of vitamin B1 present in whole blood is TDP. Thiamine and thiamine monophosphate, which comprise the remaining 10 percent, are not measured. This test was developed and its performance characteristics determined by [employer]. It has not been cleared or approved by the US Food and Drug Administration. This test was performed in a CLIA certified laboratory and is intended for clinical purposes. Performed By: [facility] [employer] [address] [place] [address] Lock Maintenance Supervisor: Gopal Flowers MD, PhD Blood BLOOD SPECIMEN / Unknown Lab Venipuncture / Unknown 06/12/2022 3:21 PM INCINERATOR PLANT SUPERVISOR 06/12/2022 3:27 PM INCINERATOR PLANT SUPERVISOR Ramila Boo [facility] LAB - CHEMISTRY ORDERABLES Performing Organization Address [facility] de Phone Number [facility] [employer] [facility]) [address] [place] [address] * VITAMIN D 25-HYDROXY (06/12/2022 3:21 PM INCINERATOR PLANT SUPERVISOR) Only the most recent of2 resultswithin the time period is included. Vitamin D, 25 Hydroxy 51.0 30 - 100 ng/mL 06/12/2022 4:40 PM INCINERATOR PLANT SUPERVISOR [facility] Blood BLOOD SPECIMEN / Unknown Lab Venipuncture / Unknown 06/12/2022 3:21 PM INCINERATOR PLANT SUPERVISOR 06/12/2022 3:27 PM INCINERATOR PLANT SUPERVISOR Narrative [facility] - 06/12/2022 4:40 PM INCINERATOR PLANT SUPERVISOR Reference Values: The recommendation for 25-Hydroxy Vitamin D clinical decision points are as follows: Deficient ? < 20.0 ng/mL Insufficient ? 20.0-29.9 ng/mL Sufficient ? 30.0-100.0 ng/mL Potential Toxicity ? >100 ng/mL Reference: The Endocrine Society Clinical Practice Guidelines. 2011 If the 25-Hydroxy Vitamin D results are inconsistent with clinical evidence, it is recommended that follow-up testing using a method such as LC-MS/MS be performed to confirm the result. Ramila Boo SENIOR SUSTAINABILITY CONSULTANT-BULK STATION AGENT LAB - CHEMISTRY ORDERABLES Performing Organization Address City/State/[facility] de Phone Number [facility] [address] * (ABNORMAL) CBC WITH DIFFERENTIAL (06/12/2022 3:21 PM INCINERATOR PLANT SUPERVISOR) Only the most recent of4 resultswithin the time period is included. Pathologist [facility] WBC 5.9 4.0 - 10.0 x10E9/L 06/12/2022 3:31 PM [facility] RBC 4.68 3.93 - 5.22 x10E12/L 06/12/2022 3:31 PM [facility] Hemoglobin 13.9 11.2 - 15.7 gm/dL 06/12/2022 3:31 PM [facility] Hematocrit 43.1 34.1 - 44.9 % 06/12/2022 3:31 PM [facility] MCV 92.1 78.0 - 100.0 fl 06/12/2022 3:31 PM [facility] MCH 29.7 25.6 - 34.0 pg 06/12/2022 3:31 PM [facility] MCHC 32.3 32.3 - 36.5 gm/dL 06/12/2022 3:31 PM [facility] RDW 13.8 11.6 - 14.4 % 06/12/2022 3:31 PM [facility] MPV 9.1(L) 9.4 - 12.4 fl 06/12/2022 3:31 PM [facility] Platelet Count 288 163 - 369 x10E9/L 06/12/2022 3:31 PM [facility] Neutrophils % 54.4 40.0 - 75.0 % 06/12/2022 3:31 PM [facility] Lymphocytes % 36.8 19.3 - 53.1 % 06/12/2022 3:31 PM [facility] Monocytes % 6.0 4.7 - 12.5 % 06/12/2022 3:31 PM [facility] Eosinophils % 1.9 0.7 - 7.0 % 06/12/2022 3:31 PM [facility] Basophils % 0.7 0.1 - 1.2 % 06/12/2022 3:31 PM [facility] Immature Granulocytes 0.2 0 - 0.5 % 06/12/2022 3:31 PM [facility] Neutrophil Absolute 3.19 1.56 - 6.13 x10E9/L 06/12/2022 3:31 PM [facility] Lymphocytes Absolute 2.15 1.18 - 3.74 x10E9/L 06/12/2022 3:31 PM [facility] Monocytes Absolute 0.35 0.24 - 0.86 x10E9/L 06/12/2022 3:31 PM [facility] Eosinophils Absolute 0.11 0.04 - 0.54 x10E9/L 06/12/2022 3:31 PM [facility] Basophils Absolute 0.04 0.01 - 0.08 x10E9/L 06/12/2022 3:31 PM [facility] Immature Granulocytes Absolute 0.01 0 - 0.03 x10E9/L 06/12/2022 3:31 PM [facility] nRBC Auto 0 <=0 /100 WBC 06/12/2022 3:31 PM [facility] nRBC Absolute 0.00 <=0 x10E9/L 06/12/2022 3:31 PM [facility] Blood BLOOD SPECIMEN / Unknown Lab Venipuncture / Unknown 06/12/2022 3:21 PM INCINERATOR PLANT SUPERVISOR 06/12/2022 3:27 PM [facility] Ramila Boo SENIOR SUSTAINABILITY CONSULTANT-BULK STATION AGENT LAB - HEMATOLOGY ORDERABLES [facility] [address] * COMPREHENSIVE METABOLIC PANEL (06/12/2022 3:21 PM [facility]) Only the most recent of4 resultswithin the time period is included. Glucose 107 70 - 125 mg/dL 06/12/2022 3:49 PM [facility] Sodium 142 136 - 145 mmol/L 06/12/2022 3:49 PM [facility] Potassium 4.4 3.4 - 5.1 mmol/L 06/12/2022 3:49 PM [facility] Chloride 104 98 - 107 mmol/L 06/12/2022 3:49 PM [facility] CO2 28 22 - 29 mmol/L 06/12/2022 3:49 PM [facility] Calcium 9.6 8.4 - 10.2 mg/dL 06/12/2022 3:49 PM [facility] Anion Gap 14 10 - 20 mmol/L 06/12/2022 3:49 PM [facility] BUN 17.3 9.8 - 20.1 mg/dL 06/12/2022 3:49 PM [facility] Creatinine 0.88 0.57 - 1.11 mg/dL 06/12/2022 3:49 PM [facility] eGFR by MDRD >60 >60 mL/min/1.7 3m2 06/12/2022 3:49 PM [facility] eGFR by MDRD >60 >60 mL/min/1.7 3m2 06/12/2022 3:49 PM [facility] Alkaline Phosphatase 87 40 - 150 U/L 06/12/2022 3:49 PM [facility] ALT 18 5 - 55 U/L 06/12/2022 3:49 PM [facility] AST 19 5 - 34 U/L 06/12/2022 3:49 PM [facility] Protein Total 7.3 6.4 - 8.3 gm/dL 06/12/2022 3:49 PM [facility] Albumin 4.0 3.5 - 5.0 gm/dL 06/12/2022 3:49 PM [facility] Globulin Total 3.3 2.6 - 4.0 gm/dL 06/12/2022 3:49 PM [facility] Albumin/Globulin Ratio 1.2 0.9 - 1.6 06/12/2022 3:49 PM INCINERATOR PLANT SUPERVISOR [facility] Bilirubin Total 0.6 0.2 - 1.2 mg/dL 06/12/2022 3:49 PM INCINERATOR PLANT SUPERVISOR [facility] Blood BLOOD SPECIMEN / Unknown Lab Venipuncture / Unknown 06/12/2022 3:21 PM INCINERATOR PLANT SUPERVISOR 06/12/2022 3:27 PM INCINERATOR PLANT SUPERVISOR Ramila Boo [facility] LAB - CHEMISTRY ORDERABLES Performing Organization Address City/[facility] Co de Phone Number [facility] [address] [place] [address] * PHOSPHORUS BLOOD (06/12/2022 3:21 PM INCINERATOR PLANT SUPERVISOR) Only the most recent of3 resultswithin the time period is included. Phosphorus 3.9 2.3 - 4.7 mg/dL 06/12/2022 3:50 PM INCINERATOR PLANT SUPERVISOR [facility] Blood BLOOD SPECIMEN / Unknown Lab Venipuncture / Unknown 06/12/2022 3:21 PM INCINERATOR PLANT SUPERVISOR 06/12/2022 3:27 PM INCINERATOR PLANT SUPERVISOR Ramila Boo [facility] LAB - CHEMISTRY ORDERABLES Performing Organization Address [facility] de Phone Number [facility] [address] [place] [address] * MAGNESIUM BLOOD (06/12/2022 3:21 PM INCINERATOR PLANT SUPERVISOR) Only the most recent of5 resultswithin the time period is included. Magnesium 2.0 1.6 - 2.6 mg/dL 06/12/2022 3:50 PM INCINERATOR PLANT SUPERVISOR [facility] Blood BLOOD SPECIMEN / Unknown Lab Venipuncture / Unknown 06/12/2022 3:21 PM INCINERATOR PLANT SUPERVISOR 06/12/2022 3:27 PM INCINERATOR PLANT SUPERVISOR Ramila Boo [facility] LAB - CHEMISTRY ORDERABLES Performing Organization Address [facility] Co de Phone Number [facility] [address] [place] [address] * VITAMIN B12 FOLATE PANEL (06/12/2022 3:21 PM INCINERATOR PLANT SUPERVISOR) Only the most recent of2 resultswithin the time period is included. Vitamin B12 637 213 - 816 pg/mL 06/12/2022 4:27 PM [facility] Folate 14.4 7.0 - 31.4 ng/mL 06/12/2022 4:27 PM [facility] Blood BLOOD SPECIMEN / Unknown Lab Venipuncture / Unknown 06/12/2022 3:21 PM INCINERATOR PLANT SUPERVISOR 06/12/2022 3:27 PM INCINERATOR PLANT SUPERVISOR Ramila [facility] LAB - CHEMISTRY ORDERABLES Performing Organization Address [facility]/ZIP Co de Phone Number [facility] [address] [place] [address] * TSH (06/12/2022 3:21 PM INCINERATOR PLANT SUPERVISOR) TSH 1.364 0.35 - 4.94 uIU/mL 06/12/2022 4:27 PM [facility] Blood BLOOD SPECIMEN / Unknown Lab Venipuncture / Unknown 06/12/2022 3:21 PM INCINERATOR PLANT SUPERVISOR 06/12/2022 3:27 PM INCINERATOR PLANT SUPERVISOR Ramila Boo APRN-BULK STATION AGENT LAB - CHEMISTRY ORDERABLES Performing Organization Address City/[facility] Co de Phone Number [facility] [address] [place] [address] * IRON + TRANSFERRIN PANEL (06/12/2022 3:21 PM INCINERATOR PLANT SUPERVISOR) Iron 100 50 - 170 ug/dL 06/12/2022 3:49 PM [facility] Transferrin 280 180 - 382 mg/dL 06/12/2022 3:49 PM [facility] TIBC Calculated 350 261 - 497 ug/dL 06/12/2022 3:49 PM [facility] Iron Saturation % 29 11 - 45 % 06/12/2022 3:49 PM [facility] Blood BLOOD SPECIMEN / Unknown Lab Venipuncture / Unknown 06/12/2022 3:21 PM INCINERATOR PLANT SUPERVISOR 06/12/2022 3:27 PM INCINERATOR PLANT SUPERVISOR Ramila Boo APRN-BULK STATION AGENT LAB - CHEMISTRY ORDERABLES Performing Organization Address City/[facility]/ZIP Co de Phone Number [facility] [address] * FERRITIN (06/12/2022 3:21 PM INCINERATOR PLANT SUPERVISOR) Ferritin 59 5 - 204 ng/mL 06/12/2022 4:12 PM INCINERATOR PLANT SUPERVISOR [facility] Blood BLOOD SPECIMEN / Unknown Lab Venipuncture / Unknown 06/12/2022 3:21 PM INCINERATOR PLANT SUPERVISOR 06/12/2022 3:27 PM INCINERATOR PLANT SUPERVISOR Ramila Boo [facility] LAB - CHEMISTRY ORDERABLES Performing Organization Address [facility] Co de Phone Number [facility] [address] * LIPID PROFILE (06/12/2022 3:21 PM INCINERATOR PLANT SUPERVISOR) Pathologist [facility] Cholesterol 159 <200 mg/dL 06/12/2022 3:50 PM INCINERATOR PLANT SUPERVISOR [facility] Triglycerides 74 <150 mg/dL 06/12/2022 3:50 PM INCINERATOR PLANT SUPERVISOR [facility] HDL Cholesterol 56 >40 mg/dL 2 3:50 PM [facility] Chol HDL Ratio 2.8 1.0 - 6.0 06/12/2022 3:50 PM [facility] LDL Calculated 88 65 - 130 mg/dL 06/12/2022 3:50 PM [facility] VLDL Calculated 15 <=30 mg/dL 2 3:50 PM INCINERATOR PLANT SUPERVISOR [facility] Blood BLOOD SPECIMEN / Unknown Lab Venipuncture / Unknown 06/12/2022 3:21 PM INCINERATOR PLANT SUPERVISOR 06/12/2022 3:27 PM INCINERATOR PLANT SUPERVISOR Narrative [facility] - 06/12/2022 3:50 PM INCINERATOR [employer]ANT SUPERVISOR Lipid Profile Comment: CHOLESTEROL LEVEL..................CLINICAL INTERPRETATION LESS [...] 9.5 ...................... 7.0 3X AVERAGE...................>23........................>11 Ramila Boo SENIOR SUSTAINABILITY CONSULTANT-BULK STATION AGENT LAB - CHEMISTRY ORDERABLES Performing Organization Address [facility]/State/[facility] Co de Phone Number [facility] [address] * LAB MISC TEST (04/24/2021) Only the most recent of8 resultswithin the time period is included. Blood BLOOD SPECIMEN / Unknown Historical Provider LAB SEND OUT * HCG URINE QUALITATIVE (05/14/2020 10:41 AM INCINERATOR PLANT SUPERVISOR) Only the most recent of3 resultswithin the time period is included. hCG Qualitative Urine Negative Negative 05/14/2020 11:27 AM INCINERATOR PLANT SUPERVISOR [facility] Specific Lefor UA 1.020 1.005 - 1.030 05/14/2020 11:27 AM INCINERATOR PLANT SUPERVISOR [facility] Urine URINE / Unknown 05/14/2020 1 0:41 AM INCINERATOR PLANT SUPERVISOR 05/14/2020 10:49 AM INCINERATOR PLANT SUPERVISOR Chani Calvillo MD LAB - URINALY SIS ORDERABLES Performing Organization Address City/[facility]/ZIP Co de Phone Number [facility] [address] * SARS-COV-2 (COVID-19) IN HOUSE (05/11/2020 9:00 AM CDT) COVID-19 PCR Not detected Not detected 05/12/2020 11:[address] [facility] Microbiology SPECIMEN FROM NASOPHARYNGEAL STRUCTURE / Unknown 05/11/2020 9:00 AM CDT 05/12/2020 9:[address] [facility] - 05/12/2020 11:54 AM CDT This nucleic acid amplification assay performance was validated by [facility]. This test has been authorized by the Food and Drug administration (FDA)under an Emergency??Use Authorization (EUA). This test has been validated in accordance with the FDA's guidance document Policy for Diagnostic Testing in Laboratories Certified to perform High Complexity Testing under CLIA prior to Emergency Use Authorization for Coronavirus Disease-2019 during the Public Health Emergency issued on September 10, 2019. FDA independent review of this validation is pending. This test is only authorized for the duration of time the declaration that circumstances exist justifying the authorization of emergency use of in vitro diagnostic tests for detection of SARS-CoV-2 virus and/or diagnosis of COVID-19 infection under section 564(b)(1) of the Act, 21 U.S.C 360bbb-3 (b)(1), unless the authorization is terminated or revoked sooner. Fact Sheets for this EUA assay are available upon request. Erwin Echeverria MD LAB - MICROBIOLOGY O RDERABLES [facility] [address] [place], [address] [phone] * LAB RESULTS ORDER (12/26/2019) Only the most recent of2 resultswithin the time period is included. Historical Provider LAB - THERAPEUTIC DRUG MONITORING ORDERABLES * GLUCOSE - POINT OF CARE (04/27/2019 11:46 AM CDT) Only the most recent of7 resultswithin the time period is included. Glucose WB/POC 103 70 - 125 mg/dL 04/27/2019 11:48 AM CDT [facility] Specimen Type Arterial/C apillary 04/27/2019 11:48 AM CDT [facility] Blood BLOOD SPECIMEN / Unknown 04/27/2019 11:46 AM CDT 04/27/2019 11:48 AM CDT Erwin Echeverria MD LAB - POINT OF CARE ORDERABLES Performing Organization Address [facility] de Phone Number [facility] [address] * FL UGI SERIES WO KUB (04/27/2019 8:12 AM CDT) Anatomical Region Laterality Modality Abdomen Radio Fluoroscop y 04/27/2019 8:22 AM CDT Impressions 04/27/2019 8:23 AM CDT Please see discussion above. Narrative 04/27/2019 8:23 AM CDT PROCEDURE: FL UGI SERIES WO KUB ??04/27/2019 8:22 AM HISTORY: Morbid (severe) obesity due to excess calories. FINDINGS AND IMPRESSION: COMPARISON: No comparison. 0.7 minutes fluoroscopy time. 24 images. Patient is status post gastric sleeve resection. No evidence of extravasation, leakage or obstruction. No surgery-related complications. Procedure Note Becky Lane MD - 04/27/2019 PROCEDURE: FL UGI SERIES WO KUB 04/27/2019 8:22 AM HISTORY: Morbid (severe) obesity due to excess calories. FINDINGS AND IMPRESSION: COMPARISON: No comparison. 0.7 minutes fluoroscopy time. 24 images. Patient is status post gastric sleeve resection. No evidence of extravasation, leakage or obstruction. No surgery-related complications. IMPRESSION Please see discussion above. Erwin Echeverria MD FLUOROSCOPY ORDERABL ES * BLOOD TYPE VERIFICATION (04/20/2019 10:23 AM CDT) ABO A 04/20/2019 11:06 AM CDT [facility] Rh Type Positive 04/20/2019 11:06 AM CDT [facility] Blood Bank BLOOD SPECIMEN / Unknown Lab Venipuncture / Unknown 04/20/2019 10:23 AM CDT 04/20/2019 10:32 AM CDT Chani Calvillo MD LAB - BLOOD B ANK ORDERABLES Performing Organization Address City/[facility] Co de Phone Number [facility] [address] * TYPE + SCREEN PANEL (04/20/2019 10:22 AM CDT) ABO A 04/20/2019 11:35 AM CDT [facility] Rh Type Positive 04/20/2019 11:35 AM CDT [facility] Antibody Screen Negative 04/20/2019 11:35 AM CDT [facility] Blood Bank BLOOD SPECIMEN / Unknown Lab Venipuncture / Unknown 04/20/2019 10:22 AM CDT 04/20/2019 10:32 AM CDT Chani Calvillo MD LAB - BLOOD B ANK ORDERABLES Performing Organization Address City/[facility] Co de Phone Number [facility] [address] * ECHOCARDIOGRAM STRESS Dobutamine (resting) Echocardiogram (02/25/2019 12:34 PM CDT) Narrative [facility] - 02/25/2019 12:34 [place] [address] Dobutamine Stress Echocardiography Patient: FOZIA ALARCON MR #: [id number] : 1970 Age: 48 years Gender: Female Study date: 25-Feb-2019 Status: Outpatient Room: - Referring Physician: ??Ruben Avila MD [facility] Honey Liquefier: ??Ruben Avila MD [facility] Honing Job Setter: ??Nallely Cooper [facility] Clinical question: Z01.818 Pre-op evaluation History: The patient is a 48 year old female. Procedure: The procedure was explained to the patient and informed consent was obtained. A dobutamine infusion pharmacologic stress test was performed. Stress and rest echocardiographic evaluation with 2D imaging and Definity intravenous contrast was performed from multiple acoustic windows for evaluation of ventricular function. Dobutamine protocol: HR bpm SBP mmHg DBP mmHg Symptoms Baseline 65 144 80 none 5 mcg/kg/min 68 140 78 -- 10 mcg/kg/min 90 151 79 -- 20 mcg/kg/min 82 142 87 -- 30 mcg/kg/min 116 115 85 -- 40 mcg/kg/min 130 101 60 -- Recovery I 90 130 78 -- Stress summary: Duration of pharmacologic stress was 16 min and 1 sec. Maximal heart rate during stress was 136 bpm ( 80 % of maximal predicted heart rate). There was no chest pain during stress. The stress test was terminated due to protocol completion. Stress 2D echocardiographic results: Baseline: There were no regional wall motion abnormalities. Low dose: There were no regional wall motion abnormalities. Peak stress: There were no regional wall motion abnormalities. Recovery: There were no regional wall motion abnormalities. Summary: ?? - ??Procedure information: Height: 157 cm. Weight: 166.9 kg. Body surface area = 2.47 m-sq - ??Stress results: Target heart rate was not achieved. There was no chest pain during stress. - ??Baseline: There were no regional wall motion abnormalities. - ??Low dose: There were no regional wall motion abnormalities. - ??Peak stress: There were no regional wall motion abnormalities. - ??Recovery: There were no regional wall motion abnormalities. Impressions: Diagnostic sensitivity was limited by submaximal stress. All images and data generated for this procedure were personally reviewed by me. Prepared and Electronically Authenticated Ruben Avila MD [facility] 25-Feb-2019 12:34:34 Procedure Note 02/25/[address] [address] Dobutamine Stress Echocardiography Patient: FOZIA ALARCON MR #: [id number] : 1970 Age: 48 years Gender: Female Study date: 25-Feb-2019 Status: Outpatient Room: - Referring Physician: Ruben Avila MD [facility] Honey Liquefier: Ruben Avila MD [facility] Honing Job Setter: Nallely Cooper [facility] Clinical question: Z01.818 Pre-op evaluation History: The patient is a 48 year old female. Procedure: The procedure was explained to the patient and informed consentwas obtained. A dobutamine infusion pharmacologic stress test was performed. Stress and rest echocardiographic evaluation with 2D imaging and Definityintravenous contrast was performed from multiple acoustic windows for evaluation of ventricular function. Dobutamine protocol: HR bpm SBP mmHg DBP mmHg Symptoms Baseline 65 144 80 none 5 mcg/kg/min 68 140 78 -- 10 mcg/kg/min 90 151 79 -- 20 mcg/kg/min 82 142 87 -- 30 mcg/kg/min 116 115 85 -- 40 mcg/kg/min 130 101 60 -- Recovery I 90 130 78 -- Stress summary: Duration of pharmacologic stress was 16 min and 1 sec.Maximal heart rate during stress was 136 bpm ( 80 % of maximal predicted heartrate). There was no chest pain during stress. The stress test was terminated dueto protocol completion. Stress 2D echocardiographic results: Baseline: There were no regional wall motion abnormalities. Low dose: There were no regional wall motion abnormalities. Peak stress: There were no regional wall motion abnormalities. Recovery: There were no regional wall motion abnormalities. Summary: - Procedure information: Height: 157 cm. Weight: 166.9 kg.Body surface area = 2.47 m-sq - Stress results: Target heart rate was not achieved. There was no chest pain during stress. - Baseline: There were no regional wall motion abnormalities. - Low dose: There were no regional wall motion abnormalities. - Peak stress: There were no regional wall motion abnormalities. - Recovery: There were no regional wall motion abnormalities. Impressions: Diagnostic sensitivity was limited by submaximal stress. All images and data generated for this procedure were personally reviewedby la. Prepared and Electronically Authenticated Ruben Avila MD [facility] 25-Feb-2019 12:34:34 Ruben Avila MD ECHO ORDERABLES [facility] * ECG STRESS TRACING (02/25/2019 12:00 PM CDT) 02/25/2019 12:0 0 PM CDT Narrative Procedure Note Ruben Avila MD - 02/27/2019 11:33 AM CDT [facility] Cardio Pulmonary Services Cardiac Stress Test Patient:FOZIA ALARCON Patient Type: CSN:[id number]/Age:2 1970 48 Stn/Rm/Bed:[facility] Sex/Race:F Unit #:[id number] Adrs:[address] Prim Phys: Attend Phys:RUBEN AVILA M.D., Hortencia, DoritaSAniA.I.City//Zip:[place] [address] Admit Date:February 25, 2019Disch To: Disch Date: DATE TEST PERFORMED: 02/25/2019 This is a stress test on this patient. EKG revealed sinus rhythm.Dobutamine was given. The resting heart rate was 76, went up to 136,almost 80% of predicted heart rate. Blood pressure 144/80 at rest, 151/79at peak exercise. Resting EKG reveals sinus rhythm, no ischemic changes,nonspecific changes. No further changes were seen on the dobutamineelectrocardiogram. Dobutamine echo also did not see any obvious wallmotion abnormality. That report will be given separately by theDobutamine Echo Department. Ruben Avila M.D., Hortencia, DoritaSAniA.I. STACIE/JULISAL /[id number] cc: Ruben Avila M.D., Hortencia, Gildardo Avila M.D., Hortencia, Gildardo AVILA M.D., Hortencia, GildardoCARDIAC STRESS TEST Ruben Avila MD CARDIAC SERVICES ORD ERABLES [facility] * ECHOCARDIOGRAM 2D WITH DOPPLER (02/25/2019 12:00 AM CDT) 02/25/2019 Narrative [facility] - 02/25/2019 12:33 PM [address] [address] Transthoracic Echocardiogram 2D, M-mode, Doppler, and Color Doppler Patient: FOIZA ALARCON MR #: [id number] : 1970 Age: 48 years Gender: Female Study date: 25-Feb-2019 Status: Outpatient Room: - Height: 61.8 in Weight: 367.2 lb BSA: 2.47 m-sq Referring Physician: ??Ruben Avila MD [facility] Honey Liquefier: ??Ruben Avila MD [facility] Honing Job Setter: ??Nallely Cooper, [facility] Summary: - ??Clinical question: Z01.818 Pre-op evaluation - ??Procedure information: Technically difficult study due to patient body habitus. - ??Left ventricle: Ejection fraction was estimated to be 60 %. Wall thickness was mildly increased. There was mild concentric hypertrophy. - ??Right ventricle: Estimated peak pressure was 33 mmHg. - ??Tricuspid valve: There was mild regurgitation. Clinical question: Z01.818 Pre-op evaluation History: Cardiovascular history: HTN, Abnormal EKG, no prior echo for comparison. Procedure: The procedure was performed in the echo lab. This was a routine study. Technically difficult study due to patient body habitus. The transthoracic approach was used. The study included complete 2D imaging, M-mode, complete spectral Doppler, and color Doppler. The heart rate was 71 bpm, at the start of the study. Systolic blood pressure was 144 mmHg, at the start of the study. Diastolic blood pressure was 80 mmHg, at the start of the study. Images were obtained from the parasternal, apical, subcostal, and suprasternal notch acoustic windows. Intravenous contrast (Definity) was administered to opacify the left ventricle. This was a technically difficult study. Left ventricle: Size was normal. Ejection fraction was estimated to be 60 %. Wall thickness was mildly increased. There was mild concentric hypertrophy. Doppler: Left ventricular diastolic function parameters were normal. Aortic valve: The valve was not well visualized. Doppler: Transaortic velocity was within the normal range. There was no stenosis. There was no aortic valve regurgitation. Aorta: The root exhibited normal size. The ascending aorta was normal in size. Mitral valve: Valve structure was normal. There was normal leaflet separation. Doppler: The transmitral velocity was within the normal range. There was no evidence for stenosis. There was no regurgitation. Left atrium: Size was normal. Pulmonary veins: The pulmonary veins were normal sized. Doppler: Doppler flow pattern was normal in the pulmonary vein(s). Right ventricle: The size was normal. Systolic function was normal. Doppler: Estimated peak pressure was 33 mmHg. Pulmonic valve: Not well visualized. Doppler: The transpulmonic velocity was within the normal range. There was no regurgitation. Tricuspid valve: The valve structure was normal. There was normal leaflet separation. Doppler: The transtricuspid velocity was within the normal range. There was no evidence for tricuspid stenosis. There was mild regurgitation. Right atrium: Size was normal. Systemic veins: IVC: The inferior vena cava was normal in size and course. Respirophasic changes were normal. Pericardium: There was no pericardial effusion. A pericardial fat pad was present. The pericardium was normal in appearance. System measurement tables 2D EF(Cube): 66.6 % ESV(Cube): 39.2 ml LVEF MOD A4C: 62.4 % SV(Cube): 78.4 ml SV(Teich): 65.4 ml IVSd: 1 cm LVEDV MOD A4C: 130 ml LVESV MOD A4C: 48.8 ml LVIDd: 4.9 cm LVIDs: 3.4 cm LVOT Diam: 2 cm LVPWd: 1.2 cm RVIDd: 3.7 cm EF Biplane: 61 % LAAs A2C: 19.4 cm2 LAAs A4C: 18.4 cm2 LAESV A-L A2C: 65.1 ml LAESV A-L A4C: 60.9 ml LAESV Index (A-L): 26 ml/m2 LAESV MOD A2C: 61.8 ml LAESV MOD A4C: 55.5 ml LAESV(A-L): 64.3 ml LALs A2C: 4.9 cm LALs A4C: 4.7 cm LVEDV MOD A2C: 126.2 ml LVEDV MOD BP: 130.8 ml LVEF MOD A2C: 58.5 % LVESV MOD A2C: 52.3 ml LVESV MOD BP: 51 ml LVLd A2C: 7.4 cm LVLs A2C: 6.8 cm SV MOD A2C: 73.9 ml CW AV Vmax: 1.6 m/s AV maxP.8 mmHg PV Vmax: 1.2 m/s PV maxP.5 mmHg RAP: 3 mmHg TR Vmax: 2.7 m/s TR maxP.1 mmHg PW JERMAN Vmax: 2.6 cm2 LVCI Dopp: 2.6 l/minm2 LVCO Dopp: 6.4 L/min LVOT VTI: 30 cm LVOT Vmax: 1.3 m/s LVOT Vmean: 0.8 m/s LVOT maxP.3 mmHg LVOT meanP.1 mmHg LVSI Dopp: 38.9 ml/m2 LVSV Dopp: 96 ml MV A Jonathan: 0.8 m/s MV Dec Glades: 7.5 m/s2 MV DecT: 158.1 ms MV E Jonathan: 1.2 m/s MV E/A Ratio: 1.6 MV PHT: 47 ms MVA By PHT: 4.7 cm2 RVSP: 33.1 mmHg HR: 66.9 BPM All images and data generated for this procedure were personally reviewed by me. Prepared and Electronically Authenticated Ruben Avila MD [facility] 25-Feb-2019 12:33:16 Procedure Note 02/25/[address] [address] Transthoracic Echocardiogram 2D, M-mode, Doppler, and Color Doppler Patient: FOZIA ALARCON MR #: [id number] : 1970 Age: 48 years Gender: Female Study date: 25-Feb-2019 Status: Outpatient Room: - Height: 61.8 in Weight: 367.2 lb BSA: 2.47 m-sq Referring Physician: Ruben Avila MD [facility] Honey Liquefier: Ruben Avila MD [facility] Honing Job Setter: Nallely Cooper [facility] Summary: - Clinical question: Z01.818 Pre-op evaluation - Procedure information: Technically difficult study due to patientbody habitus. - Left ventricle: Ejection fraction was estimated to be 60 %. Wallthickness was mildly increased. There was mild concentric hypertrophy. - Right ventricle: Estimated peak pressure was 33 mmHg. - Tricuspid valve: There was mild regurgitation. Clinical question: Z01.818 Pre-op evaluation History: Cardiovascular history: HTN, Abnormal EKG, no prior echo for comparison. Procedure: The procedure was performed in the echo lab. This was aroutine study. Technically difficult study due to patient body habitus. The transthoracic approach was used. The study included complete 2D imaging, M-mode, complete spectral Doppler, and color Doppler. The heart rate was71 bpm, at the start of the study. Systolic blood pressure was 144 mmHg, atthe start of the study. Diastolic blood pressure was 80 mmHg, at the start ofthe study. Images were obtained from the parasternal, apical, subcostal, and suprasternal notch acoustic windows. Intravenous contrast (Definity) was administered to opacify the left ventricle. This was a technicallydifficult study. Left ventricle: Size was normal. Ejection fraction was estimated to be 60%. Wall thickness was mildly increased. There was mild concentrichypertrophy. Doppler: Left ventricular diastolic function parameters were normal. Aortic valve: The valve was not well visualized. Doppler: Transaorticvelocity was within the normal range. There was no stenosis. There was no aorticvalve regurgitation. Aorta: The root exhibited normal size. The ascending aorta was normal insize. Mitral valve: Valve structure was normal. There was normal leafletseparation. Doppler: The transmitral velocity was within the normal range. There wasno evidence for stenosis. There was no regurgitation. Left atrium: Size was normal. Pulmonary veins: The pulmonary veins were normal sized. Doppler: Dopplerflow pattern was normal in the pulmonary vein(s). Right ventricle: The size was normal. Systolic function was normal.Doppler: Estimated peak pressure was 33 mmHg. Pulmonic valve: Not well visualized. Doppler: The transpulmonic velocitywas within the normal range. There was no regurgitation. Tricuspid valve: The valve structure was normal. There was normalleaflet separation. Doppler: The transtricuspid velocity was within the normalrange. There was no evidence for tricuspid stenosis. There was mildregurgitation. Right atrium: Size was normal. Systemic veins: IVC: The inferior vena cava was normal in size andcourse. Respirophasic changes were normal. Pericardium: There was no pericardial effusion. A pericardial fat padwas present. The pericardium was normal in appearance. System measurement tables 2D EF(Cube): 66.6 % ESV(Cube): 39.2 ml LVEF MOD A4C: 62.4 % SV(Cube): 78.4 ml SV(Teich): 65.4 ml IVSd: 1 cm LVEDV MOD A4C: 130 ml LVESV MOD A4C: 48.8 ml LVIDd: 4.9 cm LVIDs: 3.4 cm LVOT Diam: 2 cm LVPWd: 1.2 cm RVIDd: 3.7 cm EF Biplane: 61 % LAAs A2C: 19.4 cm2 LAAs A4C: 18.4 cm2 LAESV A-L A2C: 65.1 ml LAESV A-L A4C: 60.9 ml LAESV Index (A-L): 26 ml/m2 LAESV MOD A2C: 61.8 ml LAESV MOD A4C: 55.5 ml LAESV(A-L): 64.3 ml LALs A2C: 4.9 cm LALs A4C: 4.7 cm LVEDV MOD A2C: 126.2 ml LVEDV MOD BP: 130.8 ml LVEF MOD A2C: 58.5 % LVESV MOD A2C: 52.3 ml LVESV MOD BP: 51 ml LVLd A2C: 7.4 cm LVLs A2C: 6.8 cm SV MOD A2C: 73.9 ml CW AV Vmax: 1.6 m/s AV maxP.8 mmHg PV Vmax: 1.2 m/s PV maxP.5 mmHg RAP: 3 mmHg TR Vmax: 2.7 m/s TR maxP.1 mmHg PW JERMAN Vmax: 2.6 cm2 LVCI Dopp: 2.6 l/minm2 LVCO Dopp: 6.4 L/min LVOT VTI: 30 cm LVOT Vmax: 1.3 m/s LVOT Vmean: 0.8 m/s LVOT maxP.3 mmHg LVOT meanP.1 mmHg LVSI Dopp: 38.9 ml/m2 LVSV Dopp: 96 ml MV A Jonathan: 0.8 m/s MV Dec Glades: 7.5 m/s2 MV DecT: 158.1 ms MV E Jonathan: 1.2 m/s MV E/A Ratio: 1.6 MV PHT: 47 ms MVA By PHT: 4.7 cm2 RVSP: 33.1 mmHg HR: 66.9 BPM All images and data generated for this procedure were personally reviewedby la. 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
[2024-08-13 12:03] LABS: Hemoglobin 14.5 g/dL (12.0-15.0); Mean Corpuscular HGB Conc 32.2 g/dL (32-36); Mean Corpuscular Hemoglobin 28.5 pg (27.0-31.0); Mean Corpuscular Volume 88.6 fL (78.0-102.0); Mean Platelet Volume 10.1 fl (9.2-11.8); Platelet Count Result 293 K/mm3 (150-420); Red Blood Count 5.08 M/mm3 (4.20-5.40); Red Cell Distribution Width 13.8 % (11.6-14.4)
[2024-08-13 13:28] LABS: Alanine Aminotransferase 50 U/L (14-59); Albumin Level 3.9 g/dL (3.4-5.0); Alkaline Phosphatase 80 U/L (46-116); Anion Gap 12 mmol/L (4-12); Aspartate Amino Transferase 29 U/L (15-37); Bilirubin,Total 0.7 mg/dL (0.00-1.00); Blood Urea Nitrogen 20 mg/dL (7-18); Calcium 9.7 mg/dL (8.5-10.1); Carbon Dioxide 28 mmol/L (21-32); Chloride 102 mmol/L (98-108); Cholesterol 135 mg/dL (0-200); Estimated Glomerular Filt Rate 56; Ferritin 166 ng/mL (8-252); Folic Acid 17.3 ng/mL (8.6->20); Glucose 114 mg/dL (70-99); HDL Direct 54 mg/dL (40-60); Iron 129 ug/dL (50-170); LDL Cholesterol Calculated 67 mg/dL (<130); Magnesium 1.8 mg/dL (1.8-2.4); Osmolality Calculated 297 mOsm/kg (285-295); Percent Iron Saturation 41 % (12-57); Phosphorus 4.6 mg/dL (2.6-4.7); Potassium 4.6 mmol/L (3.5-5.1); Sodium 142 mmol/L (136-145); Total Protein 6.8 g/dL (6.4-8.2); Triglycerides 71 mg/dL (0-150); Vitamin B12 955 pg/mL (193-986)
[2024-08-16 02:58] LABS: Vitamin D 25 Hydroxy 53 ng/mL (30-100)
[2024-08-16 19:48] LABS: Parathyroid Intact 21 pg/mL (16-77)
== END 2024-08-13 11:42 | disposition home or self-care (01) ==
PROVIDERS: PCP Physician Assistant; Visit Provider Surgery
DX: E66.01 Morbid (severe) obesity due to excess calories (principal); E78.2 Mixed hyperlipidemia; Z98.84 Bariatric surgery status; E61.1 Iron deficiency; E56.9 Vitamin deficiency, unspecified; E55.9 Vitamin D deficiency, unspecified; E53.8 Deficiency of other specified B group vitamins
CPT/HCPCS: 36415; 80053; 80061; 82306; 82607; 82728; 82746; 83540; 83550; 83735; 83970; 84100; 84425; 85027